=== PATIENT | female | born 1985 | race Caucasian/White ===

== ENCOUNTER 2017-05-31 12:21 | Inpatient (IN) | payer OTHER ==
[~2017-05-31] VITALS: Ht 165 cm; Wt 79.4 kg
[2017-05-31] MEDS ORDERED: OXYTOCIN 30 UNITS/LACT RINGERS 500 ML IV ONE (12:46)
[2017-05-31] MEDS ORDERED: RINGERS SOLUTION,LACTATED 1,000 ML IV PRN (12:46)
[2017-05-31] MEDS ORDERED: METOCLOPRAMIDE HCL 5 MG/ML 2 ML VIAL IVP PRN (13:00)
[2017-05-31] MEDS ORDERED: FentaNYL CITRATE-PF 100 MCG/2 ML VIAL IVP PRN (13:00)
[2017-05-31] MEDS ORDERED: BETAMETHASONE SOLUSPAN 6 MG/ML 5 ML VIAL IM ONE ×2 (13:00→18:30)
[2017-05-31] MEDS ORDERED: AMPICILLIN SODIUM 2 GM/NS 100 ML IV ONE (13:00)
[2017-05-31] MEDS ORDERED: CITRIC ACID/SODIUM CITRATE 30 ML SOLUTION UDCUP PO PRN (13:00)
[2017-05-31] MEDS ORDERED: LIDOCAINE HCL/PF 1% 30 ML VIAL INJ PRN (13:00)
[2017-05-31] MEDS ORDERED: PREN1TAB80 PO (13:15)
[2017-05-31 13:20] LABS: BASOPHILS % (AUTO) 0.3 % (0.0-2.0); EOSINOPHILS % (AUTO) 0.1 % (1.0-6.0); HEMATOCRIT 34.4 % (36-46); HEMOGLOBIN 11.7 g/dL (12.0-16.0); LYMPHOCYTES # (AUTO) 1.7 K/uL (1.0-4.8); LYMPHOCYTES % (AUTO) 13.9 % (22.0-44.0); MEAN CORPUSCULAR HEMOGLOBIN 29.5 pg (26.0-34.0); MEAN CORPUSCULAR HGB CONC 34.1 G/dL (31.0-37.0); MEAN CORPUSCULAR VOLUME 86 fL (80-100); MONOCYTES # (AUTO) 0.3 K/uL (0.1-1.0); MONOCYTES % (AUTO) 2.7 % (2.0-9.0); NEUTROPHILS # (AUTO) 10.4 K/uL (1.8-7.7); RED BLOOD CELL COUNT(AUTO) 3.98 MIL/uL (4.00-5.20); RED CELL DISTRIBUTION WIDTH 12.8 % (11.5-14.5); WHITE BLOOD COUNT (AUTO) 12.5 K/uL (4.5-11.0)
[2017-05-31] MEDS: RINGERS SOLUTION,LACTATED 1,000 ML IV SCH (13:24)
[2017-05-31] MEDS ORDERED: CALCIUM GLUCONATE 100 MG/ML 10 ML IVP PRN (14:00)
[2017-05-31] MEDS ORDERED: MAGNESIUM SULFATE 4 GM/WATER 100 ML IV ONE (14:00)
[2017-05-31] MEDS ORDERED: LEVO25TA9 PO (14:27)
[2017-05-31 14:30] VITALS: BP 132/60
[2017-05-31] MEDS: MAGNESIUM SULFATE 500 ML IV SCH (15:54)
[2017-05-31] MEDS: AMPICILLIN SODIUM 1 GM/NS 50 ML IV SCH ×2 (18:25→22:57)
[2017-05-31] MEDS ORDERED: OXYGEN THERAPY IH SCH (20:00)
[2017-05-31] MEDS ORDERED: FentaNYL/BUPIV 0.125%/NS/PF 200 ML ED ONE (20:05)
[2017-05-31] MEDS ORDERED: FentaNYL/BUPIV 0.125%/NS/PF 200 ML ED PRN (20:59)
[2017-05-31] MEDS ORDERED: NALBUPHINE HCL 10 MG/ML VIAL IVP PRN (21:00)
[2017-05-31] MEDS ORDERED: ONDANSETRON HCL 4 MG/2 ML VIAL IVP PRN (21:00)
[2017-05-31] MEDS ORDERED: LIDOCAINE HCL 2%/EPI 1:200,000/PF 10 ML VIAL ONE (21:18)
[2017-06-01] MEDS: MAGNESIUM SULFATE 500 ML IV SCH (02:47)
[2017-06-01] MEDS: AMPICILLIN SODIUM 1 GM/NS 50 ML IV SCH (04:59)
[2017-06-01] MEDS: RINGERS SOLUTION,LACTATED 1,000 ML IV SCH (05:00)
[2017-06-01] MEDS ORDERED: OXYTOCIN 30 UNITS/LACT RINGERS 500 ML IV ONE ×2 (07:31→10:07)
[2017-06-01] MEDS ORDERED: OxyCODONE HCL/ACETAMINOPHEN 5-325 MG TABLET PO PRN ×2 (10:15)
[2017-06-01] MEDS ORDERED: GLYCERIN/WITCH HAZEL LEAF 40 PADS JAR TP PRN (10:15)
[2017-06-01] MEDS ORDERED: BENZOCAINE 20%/MENTHOL 56 GM SPRAY CANISTER TP PRN (10:15)
[2017-06-01] MEDS ORDERED: MAGNESIUM HYDROXIDE SUSPENSION 30 ML UDCUP PO PRN (10:15)
[2017-06-01] MEDS ORDERED: LANOLIN 7 GM OINTMENT TP PRN (10:15)
[2017-06-01] MEDS: IBUPROFEN 800 MG TABLET PO PRN ×2 (11:59→17:57)
[2017-06-02 06:17] LABS: BASOPHILS # (AUTO) 0.01 K/uL (0.00-0.20); BASOPHILS % (AUTO) 0.1 % (0.0-2.0); EOSINOPHILS # (AUTO) 0.02 K/uL (0.00-0.70); EOSINOPHILS % (AUTO) 0.09 % (1.0-6.0); HEMATOCRIT 27.9 % (36-46); HEMOGLOBIN 9.3 g/dL (12.0-16.0); LYMPHOCYTES # (AUTO) 2.9 K/uL (1.0-4.8); LYMPHOCYTES % (AUTO) 15.7 % (22.0-44.0); MEAN CORPUSCULAR HEMOGLOBIN 29.6 pg (26.0-34.0); MEAN CORPUSCULAR HGB CONC 33.3 G/dL (31.0-37.0); MEAN CORPUSCULAR VOLUME 89 fL (80-100); MONOCYTES % (AUTO) 5.3 % (2.0-9.0); NEUTROPHILS # (AUTO) 14.4 K/uL (1.8-7.7); NEUTROPHILS % (AUTO) 78.8 % (40.0-70.0); RED BLOOD CELL COUNT(AUTO) 3.13 MIL/uL (4.00-5.20); RED CELL DISTRIBUTION WIDTH 13.8 % (11.5-14.5); WHITE BLOOD COUNT (AUTO) 18.3 K/uL (4.5-11.0)
[2017-06-02] MEDS: IBUPROFEN 800 MG TABLET PO PRN (08:44)
[2017-06-02] MEDS ORDERED: IBUP-1547 PO (11:22)
[2017-06-02] MEDS ORDERED: DSS100 PO (11:23)
[2017-06-02] MEDS ORDERED: FERR-89 PO (11:24)
[2017-06-02 13:13] LABS: RBC MORPHOLOGY COMMENT ABNORMAL RBC MORPH
== END 2017-06-02 13:30 | disposition home or self-care (01) | DRG 775 ==
LOC: OBSVTOIN 12:21 → 4S 12:21
PROVIDERS: ADMIT Obstetrics & Gynecology; ATTEND Obstetrics & Gynecology
PROC: 10E0XZZ Delivery of Products of Conception, External Approach (ICD-10-PCS; principal; 2017-06-01)
PROC: 0KQM0ZZ Repair Perineum Muscle, Open Approach (ICD-10-PCS; 2017-06-01)
PROC: 3E0S3CZ (ICD-10-PCS; 2017-06-01)
PROC: 00HU33Z Insertion of Infusion Device into Spinal Canal, Percutaneous Approach (ICD-10-PCS; 2017-06-01)
DX: O60.14X0 Preterm labor third trimester with preterm delivery third trimester, not applicable or unspecified (principal); O70.1 Second degree perineal laceration during delivery; Z37.0 Single live birth; Z3A.35 35 weeks gestation of pregnancy
CPT/HCPCS: J0290; J0702; J2590; J3475; J3490; J7120

== ENCOUNTER 2019-01-23 17:41 | Inpatient (IN) | payer OTHER ==
[~2019-01-23] VITALS: Ht 165 cm; Wt 80.3 kg
[~2019-01-23 17:41] MED LIST: DSS100 PO; FERR-89 PO; IBUP-2071 PO; LEVO25TA9 PO; PREN1TAB80 PO
[2019-05-10] MEDS ORDERED: RINGERS SOLUTION,LACTATED 1,000 ML IV SCH (22:06)
[2019-05-10] MEDS ORDERED: RINGERS SOLUTION,LACTATED 1,000 ML IV PRN (22:06)
[2019-05-10] MEDS ORDERED: OXYTOCIN 30 UNITS/LACT RINGERS 500 ML IV ONE (22:06)
[2019-05-10] MEDS ORDERED: METOCLOPRAMIDE HCL 5 MG/ML 2 ML VIAL IVP PRN (22:15)
[2019-05-10] MEDS ORDERED: CITRIC ACID/SODIUM CITRATE 30 ML SOLUTION UDCUP PO PRN (22:15)
[2019-05-10 22:27] LABS: BASOPHILS % (AUTO) 0.3 % (0.0-2.0); EOSINOPHILS % (AUTO) 0.2 % (1.0-6.0); HEMATOCRIT 36.9 % (36-46); HEMOGLOBIN 11.9 g/dL (12.0-16.0); LYMPHOCYTES # (AUTO) 2.1 K/uL (1.0-4.8); LYMPHOCYTES % (AUTO) 16.9 % (22.0-44.0); MEAN CORPUSCULAR HEMOGLOBIN 28.7 pg (26.0-34.0); MEAN CORPUSCULAR HGB CONC 32.3 G/dL (31.0-37.0); MEAN CORPUSCULAR VOLUME 89 fL (80-100); MONOCYTES # (AUTO) 0.6 K/uL (0.1-1.0); NEUTROPHILS # (AUTO) 9.8 K/uL (1.8-7.7); NEUTROPHILS % (AUTO) 77.6 % (40.0-70.0); PLATELET COUNT (AUTO)-OB 216 K/uL (150-450); RED BLOOD CELL COUNT(AUTO) 4.16 MIL/uL (4.00-5.20); RED CELL DISTRIBUTION WIDTH 13.3 % (11.5-14.5)
[2019-05-10] MEDS ORDERED: ROPIVACAINE HCL/PF 0.2% 100 ML ED ONE (22:59)
[2019-05-10] MEDS ORDERED: DiphenhydrAMINE HCL 50 MG/ML VIAL IVP PRN (23:30)
[2019-05-10] MEDS ORDERED: ROPIVACAINE HCL/PF 0.2% 100 ML ED PRN (23:30)
[2019-05-10] MEDS ORDERED: ONDANSETRON HCL 4 MG/2 ML VIAL IVP PRN (23:30)
[2019-05-11 00:04] VITALS: BP 122/72
[2019-05-11] MEDS ORDERED: PNV11TAB PO (00:12)
[2019-05-11] MEDS ORDERED: CeFAZolin 2 GM/DEXTROSE 50 ML IV ONE ×2 (01:50→02:00)
[2019-05-11] MEDS ORDERED: BENZOCAINE 20%/MENTHOL 56 GM SPRAY CANISTER TP PRN (02:15)
[2019-05-11] MEDS ORDERED: GLYCERIN/WITCH HAZEL LEAF 40 PADS JAR TP PRN (02:15)
[2019-05-11] MEDS ORDERED: ACETAMINOPHEN/CODEINE 300-30 MG TABLET PO PRN ×2 (02:15)
[2019-05-11] MEDS ORDERED: LANOLIN 7 GM OINTMENT TP PRN (02:15)
[2019-05-11] MEDS: IBUPROFEN 800 MG TABLET PO SCH ×3 (04:03→21:18)
[2019-05-11] MEDS ORDERED: OXYGEN THERAPY IH SCH (08:00)
[2019-05-11] MEDS: MAGNESIUM HYDROXIDE SUSPENSION 30 ML UDCUP PO SCH ×2 (13:06→21:18)
[2019-05-12] MEDS: IBUPROFEN 800 MG TABLET PO SCH (03:32)
[2019-05-12] MEDS: MAGNESIUM HYDROXIDE SUSPENSION 30 ML UDCUP PO SCH (08:53)
== END 2019-05-12 13:00 | disposition home or self-care (01) | DRG 807 ==
LOC: 4S 05-10 20:40 → OBSVTOIN 05-10 20:40
PROVIDERS: ADMIT Obstetrics & Gynecology; ATTEND Obstetrics & Gynecology
PROC: 10D07Z6 Extraction of Products of Conception, Vacuum, Via Natural or Artificial Opening (ICD-10-PCS; principal; 2019-05-11)
PROC: 0HQ9XZZ Repair Perineum Skin, External Approach (ICD-10-PCS; 2019-05-11)
PROC: 3E0R3BZ Introduction of Anesthetic Agent into Spinal Canal, Percutaneous Approach (ICD-10-PCS; 2019-05-11)
PROC: 00HU33Z Insertion of Infusion Device into Spinal Canal, Percutaneous Approach (ICD-10-PCS; 2019-05-11)
DX: O70.0 First degree perineal laceration during delivery (principal); Z37.0 Single live birth; Z3A.37 37 weeks gestation of pregnancy
CPT/HCPCS: 86850; 86900; 86901; J0690; J2590; J2795; J7120